=== PATIENT | male | born 1970 | race Caucasian/White ===

== ENCOUNTER 2018-01-04 09:58 | Inpatient (IN) | payer OTHER ==
[~2018-01-04 09:58] MED LIST: LACTATED RINGER'S 1,000 ML IV*
[2018-01-04] MEDS: VANCOMYCIN 1 GM 250 ML IVPB (10:44)
[2018-01-04] MEDS ORDERED: CEFAZOLIN 1 GM INJ ×2 (11:43→17:09)
[2018-01-04] MEDS: D5W-0.45 NACL + KCL 20 MEQ 1,000 ML IV ×2 (12:22→21:19)
[2018-01-04] MEDS ORDERED: BISACODYL 10 MG SUPP PR (12:30)
[2018-01-04] MEDS ORDERED: MIDAZOLAM 1 MG/ML 2 ML INJ (12:30)
[2018-01-04] MEDS ORDERED: CEPASTAT LOZENGE MT (12:30)
[2018-01-04] MEDS ORDERED: DIPHENHYDRAMINE 50 MG INJ IV (12:30)
[2018-01-04] MEDS ORDERED: NALOXONE (0.4 MG/ML) INJ IV (12:30)
[2018-01-04] MEDS ORDERED: ONDANSETRON 4 MG INJ IV (12:30)
[2018-01-04] MEDS ORDERED: HYDROCODONE/APAP (10/325) TAB PO (12:30)
[2018-01-04] MEDS ORDERED: PHENYLephrine (100 MCG/ML) 5ML SYG (12:43)
[2018-01-04] MEDS: HEPARIN 1000 UNITS/ML 10 ML INJ (13:11)
[2018-01-04] MEDS: LIDOCAINE 1%/EPI 30 ML INJ (13:11)
[2018-01-04] MEDS: GELATIN SIZE 100 SPONGE (13:13)
[2018-01-04] MEDS: THROMBIN 5000 UNIT VIAL (13:15)
[2018-01-04] MEDS: SURGIFOAM POWDER 1 GM KIT (13:19)
[2018-01-04] MEDS ORDERED: morphine 10 MG INJ (16:53)
[2018-01-04] MEDS ORDERED: LIDOCAINE 2% (SDV) 5 ML INJ (17:04)
[2018-01-04] MEDS ORDERED: PROPOFOL 20 ML (17:04)
[2018-01-04] MEDS ORDERED: ROCURONIUM 50 MG INJ (17:04)
[2018-01-04] MEDS ORDERED: ONDANSETRON 4 MG INJ (17:05)
[2018-01-04] MEDS ORDERED: GLYCOPYRROLATE 0.4 MG INJ (17:05)
[2018-01-04] MEDS ORDERED: NEOSTIGMINE 3 MG/3 ML SYRINGE (17:05)
[2018-01-04] MEDS: HYDROmorphONE 0.2 MG/ML PCA IV ×2 (17:26→23:30)
[2018-01-04] MEDS ORDERED: HYDROmorphONE (0.2 MG/ML) 10ML SYG IV (17:30)
[2018-01-04] MEDS ORDERED: FENTAnyl 50 MCG/ML VIAL IV (17:30)
[2018-01-04] MEDS ORDERED: METOCLOPRAMIDE 10 MG INJ IV (17:30)
[2018-01-04] MEDS ORDERED: MEPERIDINE 25 MG INJ IV (17:30)
[2018-01-04] MEDS: HYDROmorphONE (0.2 MG/ML) 10ML SYG IV (18:14)
[2018-01-04] MEDS: ONDANSETRON 4 MG INJ IV (18:14)
[2018-01-04] MEDS: DIPHENHYDRAMINE 50 MG INJ IV (18:39)
[2018-01-04 19:12] LABS: ADD UMIC NO; UR ASCORBIC ACID NEGATIVE (NEGATIVE); UR BILIRUBIN (Dip) NEGATIVE (NEGATIVE); UR BLOOD (Dip) NEGATIVE (NEGATIVE); UR CLARITY SLIGHTLY CLOUDY (CLEAR); UR COLOR YELLOW (YELLOW); UR GLUCOSE (Dip) NEGATIVE (NEGATIVE); UR KETONES (Dip) NEGATIVE (NEGATIVE); UR LEUKOCYTE ESTERASE (Dip) NEGATIVE Leu/ul (NEGATIVE); UR MUCUS FEW /HPF (NONE SEEN); UR NITRITE (Dip) NEGATIVE (NEGATIVE); UR RBC 6 /HPF (0-5); UR SPECIFIC GRAVITY (Dip) 1.016 (1.003-1.030); UR TOTAL PROTEIN (Dip) NEGATIVE (NEGATIVE); UR UROBILINOGEN (Dip) NEGATIVE (NEGATIVE); UR WBC 1 /HPF (0-5)
[2018-01-04] MEDS: DOCUSATE SODIUM 100 MG CAP PO (21:00)
[2018-01-04] MEDS: VANCOMYCIN 1 GM (PMX) 250 ML IVPB (21:19)
[2018-01-05 05:13] LABS: ADD MAN DIFF? NO
[2018-01-05 05:21] LABS: WHITE BLOOD COUNT 8.8 10^3/ul (4.8-10.8)
[2018-01-05 05:21] LABS: BASOPHILS % 0.2 % (0.0-2.0); EOSINOPHILS % 0.1 % (0.0-7.0); HEMATOCRIT 38.3 % (42.0-52.0); HEMOGLOBIN 12.7 g/dl (14.0-18.0); LYMPHOCYTES # 1.3 10^3/ul (0.8-2.9); LYMPHOCYTES % 15.2 % (15.0-51.0); MEAN CORPUSCULAR HEMOGLOBIN 27.1 pg (29.0-33.0); MEAN CORPUSCULAR HGB CONC 33.2 g/dl (32.0-37.0); MEAN CORPUSCULAR VOLUME 81.7 fl (82.0-101.0); MEAN PLATELET VOLUME 11.9 fl (7.4-10.4); MONOCYTES % 11.8 % (0.0-11.0); NEUTROPHIL # 6.3 10^3/ul (1.6-7.5); NEUTROPHILS % 72.2 % (39.0-77.0); PLATELET COUNT 222 10^3/UL (140-415); RED BLOOD COUNT 4.69 10^6/ul (4.70-6.10); RED CELL DISTRIBUTION WIDTH 14.2 % (11.5-14.5)
[2018-01-05 05:49] LABS: ANION GAP 12 (8-16); BLOOD UREA NITROGEN 13 mg/dl (7-20); CALCIUM 7.8 mg/dl (8.4-10.2); CARBON DIOXIDE 28 mmol/L (21-31); CHLORIDE 105 mmol/L (97-110); CREATININE 1.17 mg/dl (0.61-1.24); GLUCOSE 123 mg/dl (70-220); MAGNESIUM 1.8 mg/dl (1.7-2.5); POTASSIUM 4.2 mmol/L (3.5-5.1); SODIUM 141 mmol/L (135-144)
[2018-01-05] MEDS: HYDROmorphONE 0.2 MG/ML PCA IV ×3 (07:52→21:38)
[2018-01-05] MEDS: RANITIDINE 150 MG TAB PO ×2 (08:11→20:44)
[2018-01-05] MEDS: DOCUSATE SODIUM 100 MG CAP PO ×2 (08:11→20:44)
[2018-01-05] MEDS: D5W-0.45 NACL + KCL 20 MEQ 1,000 ML IV ×3 (10:23→23:06)
[2018-01-05] MEDS: VANCOMYCIN 1 GM (PMX) 250 ML IVPB (10:23)
[2018-01-05] MEDS: CYCLOBENZAPRINE 10 MG TAB PO ×2 (14:45→23:01)
[2018-01-05] MEDS: HYDROmorphONE 0.5 MG/0.5 ML SYG IV (19:23)
[2018-01-06] MEDS: ACETAMINOPHEN 325 MG TAB PO ×2 (02:13→08:30)
[2018-01-06] MEDS: HYDROmorphONE 0.2 MG/ML PCA IV (04:00)
[2018-01-06 05:43] LABS: ADD MAN DIFF? NO
[2018-01-06 05:49] LABS: BASOPHILS % 0.3 % (0.0-2.0); EOSINOPHILS % 0.4 % (0.0-7.0); HEMATOCRIT 34.7 % (42.0-52.0); HEMOGLOBIN 11.7 g/dl (14.0-18.0); LYMPHOCYTES # 1.8 10^3/ul (0.8-2.9); LYMPHOCYTES % 18.4 % (15.0-51.0); MEAN CORPUSCULAR HEMOGLOBIN 27.7 pg (29.0-33.0); MEAN CORPUSCULAR HGB CONC 33.7 g/dl (32.0-37.0); MEAN CORPUSCULAR VOLUME 82.2 fl (82.0-101.0); MEAN PLATELET VOLUME 11.9 fl (7.4-10.4); MONOCYTE # 1.4 10^3/ul (0.3-0.9); MONOCYTES % 13.7 % (0.0-11.0); NEUTROPHIL # 6.7 10^3/ul (1.6-7.5); NEUTROPHILS % 66.7 % (39.0-77.0); PLATELET COUNT 176 10^3/UL (140-415); RED BLOOD COUNT 4.22 10^6/ul (4.70-6.10)
[2018-01-06 06:33] LABS: ANION GAP 12 (8-16); BLOOD UREA NITROGEN 8 mg/dl (7-20); CALCIUM 8.2 mg/dl (8.4-10.2); CARBON DIOXIDE 31 mmol/L (21-31); CHLORIDE 97 mmol/L (97-110); GLUCOSE 112 mg/dl (70-220); MAGNESIUM 1.8 mg/dl (1.7-2.5); POTASSIUM 3.9 mmol/L (3.5-5.1); SODIUM 136 mmol/L (135-144)
[2018-01-06] MEDS: DOCUSATE SODIUM 100 MG CAP PO ×2 (08:29→20:54)
[2018-01-06] MEDS: RANITIDINE 150 MG TAB PO ×2 (08:30→20:54)
[2018-01-06] MEDS: HYDROCODONE/APAP (10/325) TAB PO (09:47)
[2018-01-06] MEDS: D5W-0.45 NACL + KCL 20 MEQ 1,000 ML IV (13:44)
[2018-01-06] MEDS: CYCLOBENZAPRINE 10 MG TAB PO (14:31)
[2018-01-06] MEDS ORDERED: traMADol 50 MG TAB PO (17:30)
[2018-01-06] MEDS: traMADol 50 MG TAB PO (17:50)
[2018-01-06] MEDS: CARISOPRODOL 350 MG TAB PO (20:54)
[2018-01-07] MEDS: D5W-0.45 NACL + KCL 20 MEQ 1,000 ML IV ×3 (00:22→20:22)
[2018-01-07] MEDS: traMADol 50 MG TAB PO ×4 (01:48→20:35)
[2018-01-07 05:36] LABS: ADD MAN DIFF? NO
[2018-01-07 05:46] LABS: WHITE BLOOD COUNT 8.9 10^3/ul (4.8-10.8)
[2018-01-07 05:46] LABS: BASOPHILS % 0.2 % (0.0-2.0); EOSINOPHILS # 0.1 10^3/ul (0.0-0.5); EOSINOPHILS % 1.1 % (0.0-7.0); HEMOGLOBIN 11.5 g/dl (14.0-18.0); LYMPHOCYTES # 1.3 10^3/ul (0.8-2.9); MEAN CORPUSCULAR HEMOGLOBIN 27.3 pg (29.0-33.0); MEAN CORPUSCULAR HGB CONC 33.8 g/dl (32.0-37.0); MEAN CORPUSCULAR VOLUME 80.8 fl (82.0-101.0); MEAN PLATELET VOLUME 11.9 fl (7.4-10.4); MONOCYTE # 0.9 10^3/ul (0.3-0.9); MONOCYTES % 9.7 % (0.0-11.0); NEUTROPHIL # 6.5 10^3/ul (1.6-7.5); NEUTROPHILS % 73.8 % (39.0-77.0); PLATELET COUNT 172 10^3/UL (140-415); RED BLOOD COUNT 4.21 10^6/ul (4.70-6.10); RED CELL DISTRIBUTION WIDTH 13.7 % (11.5-14.5)
[2018-01-07] MEDS: CARISOPRODOL 350 MG TAB PO ×2 (06:26→16:40)
[2018-01-07 07:01] LABS: ANION GAP 14 (8-16); BLOOD UREA NITROGEN 8 mg/dl (7-20); CALCIUM 8.5 mg/dl (8.4-10.2); CARBON DIOXIDE 32 mmol/L (21-31); CHLORIDE 100 mmol/L (97-110); CREATININE 0.93 mg/dl (0.61-1.24); GLUCOSE 101 mg/dl (70-220); MAGNESIUM 1.9 mg/dl (1.7-2.5); POTASSIUM 3.6 mmol/L (3.5-5.1); SODIUM 142 mmol/L (135-144)
[2018-01-07] MEDS: DOCUSATE SODIUM 100 MG CAP PO ×2 (08:23→20:34)
[2018-01-07] MEDS: RANITIDINE 150 MG TAB PO ×2 (08:23→20:34)
[2018-01-07] MEDS: ZOLPIDEM 5 MG TAB PO (20:34)
[2018-01-08] MEDS: traMADol 50 MG TAB PO ×2 (06:11→12:01)
[2018-01-08] MEDS: D5W-0.45 NACL + KCL 20 MEQ 1,000 ML IV (06:22)
[2018-01-08] MEDS: RANITIDINE 150 MG TAB PO (09:12)
[2018-01-08] MEDS: DOCUSATE SODIUM 100 MG CAP PO (09:12)
[2018-01-08] MEDS: CARISOPRODOL 350 MG TAB PO (09:12)
[2018-01-08] MEDS: AL HYDROX/MG HYDROX/SIMETH 30 ML CUP PO (09:13)
== END 2018-01-08 15:35 | disposition home or self-care (01) | DRG 455 ==
LOC: REC 09:58 → MS1 19:30
PROC: 0SG30A0 Fusion of Lumbosacral Joint with Interbody Fusion Device, Anterior Approach, Anterior Column, Open Approach (ICD-10-PCS; principal; 2018-01-04 12:00)
PROC: 0SG3071 Fusion of Lumbosacral Joint with Autologous Tissue Substitute, Posterior Approach, Posterior Column, Open Approach (ICD-10-PCS; 2018-01-04 12:00)
PROC: 0QB30ZZ Excision of Left Pelvic Bone, Open Approach (ICD-10-PCS; 2018-01-04 12:00)
PROC: 0ST40ZZ Resection of Lumbosacral Disc, Open Approach (ICD-10-PCS; 2018-01-04 12:00)
DX: M43.17 Spondylolisthesis, lumbosacral region (principal); E78.5 Hyperlipidemia, unspecified; M48.07 Spinal stenosis, lumbosacral region; K21.9 Gastro-esophageal reflux disease without esophagitis; M53.2X7 Spinal instabilities, lumbosacral region; K58.9 Irritable bowel syndrome, unspecified; M54.17 Radiculopathy, lumbosacral region
CPT/HCPCS: 72114; 80048; 81001; 81003; 83735; 85025; 86850; 86900; 86901; 86999; 87086; 97116; 97161; 97530

== ENCOUNTER → 2018-01-20 | Outpatient (CLI) | payer OTHER | END | disposition home or self-care (01) | LOC: VAS 12:36 | DX: M79.662 Pain in left lower leg (principal); M79.661 Pain in right lower leg | CPT/HCPCS: 93970 ==

== ENCOUNTER 2019-02-15 05:23 | Inpatient (IN) | payer OTHER ==
[2019-02-15] MEDS: VANCOMYCIN 1 GM 250 ML IVPB ×2 (06:35)
[2019-02-15] MEDS: LACTATED RINGER'S 1,000 ML IV* (06:40)
[2019-02-15] MEDS: D5W-0.45 NACL + KCL 20 MEQ 1,000 ML IV ×3 (06:56→17:02)
[2019-02-15] MEDS ORDERED: ONDANSETRON 4 MG INJ IV (07:00)
[2019-02-15] MEDS ORDERED: HYDROCODONE/APAP (10/325) TAB PO ×2 (07:00)
[2019-02-15] MEDS ORDERED: DIPHENHYDRAMINE 50 MG INJ IV ×2 (07:00→10:30)
[2019-02-15] MEDS ORDERED: DIPHENHYDRAMINE 25 MG CAP PO (07:00)
[2019-02-15] MEDS ORDERED: CEPASTAT LOZENGE MT (07:00)
[2019-02-15] MEDS ORDERED: NALOXONE (0.4 MG/ML) INJ IV (07:00)
[2019-02-15] MEDS ORDERED: LIDOCAINE 2% (SDV) 5 ML INJ (07:05)
[2019-02-15] MEDS ORDERED: PROPOFOL 20 ML ×2 (07:05→07:20)
[2019-02-15] MEDS ORDERED: MIDAZOLAM 1 MG/ML 2 ML INJ (07:06)
[2019-02-15] MEDS ORDERED: SUCCINYLCHOLINE CHLORIDE 100 MG/5 ML SYG IV (07:20)
[2019-02-15] MEDS ORDERED: ONDANSETRON 4 MG INJ (07:22)
[2019-02-15] MEDS ORDERED: DEXAMETHASONE 4 MG/ML 5 ML INJ (07:22)
[2019-02-15] MEDS ORDERED: FAMOTIDINE 20 MG INJ (07:22)
[2019-02-15] MEDS: BUPIVACAINE 0.5%/EPI (SDV) 30 ML INJ (07:55)
[2019-02-15] MEDS ORDERED: EPHEDrine 25 MG/5 ML SYG (07:57)
[2019-02-15] MEDS ORDERED: ROCURONIUM 50 MG INJ ×3 (08:02→10:17)
[2019-02-15] MEDS: THROMBIN (BOVINE) 5,000 UNIT VIAL TP (08:33)
[2019-02-15] MEDS: POLYMYXIN/BACITRACIN 1L IRRIG (08:33)
[2019-02-15] MEDS: SURGIFOAM POWDER 1 GM KIT TOP (08:34)
[2019-02-15] MEDS ORDERED: HYDROmorphONE 2 MG/ML SYG (10:09)
[2019-02-15] MEDS ORDERED: THROMBIN (BOVINE) 5,000 UNIT VIAL TP (10:22)
[2019-02-15] MEDS: SURGIFOAM POWDER 1 GM KIT (10:27)
[2019-02-15] MEDS ORDERED: FENTAnyl 50 MCG/ML VIAL IV ×3 (10:30)
[2019-02-15] MEDS ORDERED: hydrALAzine 20 MG INJ IV (10:30)
[2019-02-15] MEDS ORDERED: LABETALOL HCL 20MG INJ IV (10:30)
[2019-02-15] MEDS ORDERED: PROCHLORPERAZINE 10 MG INJ IV (10:30)
[2019-02-15] MEDS ORDERED: EPHEDrine SULFATE 50 MG/5 ML SYG IV (10:30)
[2019-02-15] MEDS ORDERED: MEPERIDINE 25 MG INJ IV (10:30)
[2019-02-15] MEDS ORDERED: HYDROmorphONE 1 MG/5 ML IV SYRINGE IV ×2 (10:30)
[2019-02-15] MEDS ORDERED: BUPIVACAINE 0.25% (MPF) 30 ML INJ (11:24)
[2019-02-15] MEDS ORDERED: FENTAnyl 50 MCG/ML VIAL (11:24)
[2019-02-15] MEDS ORDERED: NEOSTIGMINE 3 MG/3 ML SYRINGE ×2 (11:46→11:50)
[2019-02-15] MEDS ORDERED: GLYCOPYRROLATE 0.4 MG INJ ×2 (11:46→11:50)
[2019-02-15] MEDS ORDERED: SUGAMMADEX SODIUM 200 MG/2 ML VIAL IV ×2 (11:53→11:56)
[2019-02-15] MEDS: DOCUSATE SODIUM 100 MG CAP PO ×2 (12:38→21:15)
[2019-02-15] MEDS: HYDROmorphONE 1 MG/5 ML IV SYRINGE IV (12:38)
[2019-02-15] MEDS: ONDANSETRON 4 MG INJ IV (12:38)
[2019-02-15] MEDS: HYDROmorphONE 0.2 MG/ML PCA IV (12:45)
[2019-02-15] MEDS: PREGABALIN 75 MG CAP PO ×2 (13:00→21:00)
[2019-02-15] MEDS: VANCOMYCIN 1 GM (PMX) 250 ML IVPB (17:18)
[2019-02-15] MEDS: HYDROmorphONE 0.5 MG/0.5 ML SYG IV (22:00)
[2019-02-16] MEDS: D5W-0.45 NACL + KCL 20 MEQ 1,000 ML IV ×4 (02:56→22:56)
[2019-02-16] MEDS: HYDROmorphONE 0.2 MG/ML PCA IV ×2 (05:32→18:08)
[2019-02-16] MEDS: VANCOMYCIN 1 GM (PMX) 250 ML IVPB (05:46)
[2019-02-16 07:26] LABS: ADD MAN DIFF? NO
[2019-02-16 07:28] LABS: BASOPHILS % 0.1 % (0.0-2.0); HEMATOCRIT 36.9 % (42.0-52.0); HEMOGLOBIN 12.1 g/dl (14.0-18.0); LYMPHOCYTES # 1.4 10^3/ul (0.8-2.9); LYMPHOCYTES % 17.2 % (15.0-51.0); MEAN CORPUSCULAR HEMOGLOBIN 27.1 pg (29.0-33.0); MEAN CORPUSCULAR HGB CONC 32.8 g/dl (32.0-37.0); MEAN CORPUSCULAR VOLUME 82.6 fl (82.0-101.0); MEAN PLATELET VOLUME 11.8 fl (7.4-10.4); MONOCYTE # 1.1 10^3/ul (0.3-0.9); MONOCYTES % 13.5 % (0.0-11.0); NEUTROPHIL # 5.8 10^3/ul (1.6-7.5); NEUTROPHILS % 68.7 % (39.0-77.0); PLATELET COUNT 201 10^3/UL (140-415); RED BLOOD COUNT 4.47 10^6/ul (4.70-6.10); RED CELL DISTRIBUTION WIDTH 14.6 % (11.5-14.5)
[2019-02-16 07:28] LABS: WHITE BLOOD COUNT 8.4 10^3/ul (4.8-10.8)
[2019-02-16 08:00] LABS: ANION GAP 6 (5-13); BLOOD UREA NITROGEN 11 mg/dl (7-20); CALCIUM 8.3 mg/dl (8.4-10.2); CARBON DIOXIDE 30 mmol/L (21-31); CHLORIDE 102 mmol/L (97-110); CREATININE 1.02 mg/dl (0.61-1.24); Estimated GFR > 60 mL/min (>60); GLUCOSE 104 mg/dl (70-220); POTASSIUM 3.9 mmol/L (3.5-5.1); SODIUM 138 mmol/L (135-144)
[2019-02-16 08:17] LABS: MAGNESIUM 1.8 mg/dl (1.7-2.5)
[2019-02-16] MEDS: DOCUSATE SODIUM 100 MG CAP PO ×2 (08:57→21:05)
[2019-02-16] MEDS: CYCLOBENZAPRINE 10 MG TAB PO ×2 (11:29→22:37)
[2019-02-16] MEDS: PREGABALIN 75 MG CAP PO ×3 (11:30→21:05)
[2019-02-16] MEDS: HYDROmorphONE 0.5 MG/0.5 ML SYG IV (14:54)
[2019-02-16] MEDS: ACETAMINOPHEN 325 MG TAB PO (15:37)
[2019-02-16 17:37] LABS: ADD UMIC YES; UR ASCORBIC ACID NEGATIVE (NEGATIVE); UR BILIRUBIN (Dip) NEGATIVE (NEGATIVE); UR BLOOD (Dip) 1+ mg/dL (NEGATIVE); UR CLARITY CLEAR (CLEAR); UR COLOR COLORLESS (YELLOW); UR GLUCOSE (Dip) NEGATIVE (NEGATIVE); UR KETONES (Dip) NEGATIVE (NEGATIVE); UR LEUKOCYTE ESTERASE (Dip) NEGATIVE Leu/ul (NEGATIVE); UR NITRITE (Dip) NEGATIVE (NEGATIVE); UR RBC 0 /HPF (0-5); UR SPECIFIC GRAVITY (Dip) 1.003 (1.003-1.030); UR TOTAL PROTEIN (Dip) NEGATIVE (NEGATIVE); UR UROBILINOGEN (Dip) NEGATIVE (NEGATIVE); UR WBC 1 /HPF (0-5)
[2019-02-16 18:01] LABS: ADD MAN DIFF? NO
[2019-02-16 18:07] LABS: WHITE BLOOD COUNT 8.7 10^3/ul (4.8-10.8)
[2019-02-16 18:07] LABS: BASOPHILS % 0.3 % (0.0-2.0); EOSINOPHILS % 0.2 % (0.0-7.0); HEMATOCRIT 36.8 % (42.0-52.0); LYMPHOCYTES # 1.4 10^3/ul (0.8-2.9); MEAN CORPUSCULAR HEMOGLOBIN 27.5 pg (29.0-33.0); MEAN CORPUSCULAR HGB CONC 32.6 g/dl (32.0-37.0); MEAN CORPUSCULAR VOLUME 84.2 fl (82.0-101.0); MEAN PLATELET VOLUME 11.6 fl (7.4-10.4); MONOCYTE # 1.2 10^3/ul (0.3-0.9); MONOCYTES % 13.7 % (0.0-11.0); NEUTROPHILS % 69.3 % (39.0-77.0); PLATELET COUNT 189 10^3/UL (140-415); RED BLOOD COUNT 4.37 10^6/ul (4.70-6.10); RED CELL DISTRIBUTION WIDTH 14.6 % (11.5-14.5)
[2019-02-17 06:41] LABS: ADD MAN DIFF? NO
[2019-02-17 06:47] LABS: BASOPHILS % 0.3 % (0.0-2.0); EOSINOPHILS # 0.1 10^3/ul (0.0-0.5); EOSINOPHILS % 0.9 % (0.0-7.0); LYMPHOCYTES # 1.6 10^3/ul (0.8-2.9); LYMPHOCYTES % 18.8 % (15.0-51.0); MEAN CORPUSCULAR HGB CONC 32.4 g/dl (32.0-37.0); MEAN CORPUSCULAR VOLUME 83.1 fl (82.0-101.0); MEAN PLATELET VOLUME 11.4 fl (7.4-10.4); MONOCYTE # 1.2 10^3/ul (0.3-0.9); MONOCYTES % 14.1 % (0.0-11.0); NEUTROPHIL # 5.6 10^3/ul (1.6-7.5); NEUTROPHILS % 65.4 % (39.0-77.0); PLATELET COUNT 196 10^3/UL (140-415); RED BLOOD COUNT 4.45 10^6/ul (4.70-6.10); RED CELL DISTRIBUTION WIDTH 14.4 % (11.5-14.5)
[2019-02-17 06:47] LABS: WHITE BLOOD COUNT 8.6 10^3/ul (4.8-10.8)
[2019-02-17] MEDS: D5W-0.45 NACL + KCL 20 MEQ 1,000 ML IV (06:49)
[2019-02-17 07:04] LABS: ANION GAP 5 (5-13); BLOOD UREA NITROGEN 10 mg/dl (7-20); CALCIUM 8.7 mg/dl (8.4-10.2); CARBON DIOXIDE 32 mmol/L (21-31); CHLORIDE 102 mmol/L (97-110); CREATININE 0.96 mg/dl (0.61-1.24); Estimated GFR > 60 mL/min (>60); GLUCOSE 118 mg/dl (70-220); MAGNESIUM 2.1 mg/dl (1.7-2.5); POTASSIUM 4.3 mmol/L (3.5-5.1); SODIUM 139 mmol/L (135-144)
[2019-02-17] MEDS: PREGABALIN 75 MG CAP PO ×3 (09:28→20:04)
[2019-02-17] MEDS: DOCUSATE SODIUM 100 MG CAP PO ×2 (09:28→20:04)
[2019-02-17] MEDS: HYDROCODONE/APAP (10/325) TAB PO ×4 (09:30→23:27)
[2019-02-17] MEDS: BISACODYL 10 MG SUPP PR (18:24)
[2019-02-18] MEDS: HYDROCODONE/APAP (10/325) TAB PO ×3 (04:40→20:35)
[2019-02-18] MEDS: BISACODYL 10 MG SUPP PR (05:47)
[2019-02-18 07:02] LABS: ADD MAN DIFF? NO
[2019-02-18 07:09] LABS: WHITE BLOOD COUNT 6.7 10^3/ul (4.8-10.8)
[2019-02-18 07:09] LABS: BASOPHILS % 0.3 % (0.0-2.0); EOSINOPHILS # 0.2 10^3/ul (0.0-0.5); EOSINOPHILS % 2.4 % (0.0-7.0); HEMATOCRIT 36.7 % (42.0-52.0); HEMOGLOBIN 11.9 g/dl (14.0-18.0); LYMPHOCYTES # 1.7 10^3/ul (0.8-2.9); LYMPHOCYTES % 25.7 % (15.0-51.0); MEAN CORPUSCULAR HEMOGLOBIN 26.9 pg (29.0-33.0); MEAN CORPUSCULAR HGB CONC 32.4 g/dl (32.0-37.0); MEAN CORPUSCULAR VOLUME 82.8 fl (82.0-101.0); MONOCYTE # 0.8 10^3/ul (0.3-0.9); MONOCYTES % 11.4 % (0.0-11.0); NEUTROPHILS % 59.8 % (39.0-77.0); PLATELET COUNT 205 10^3/UL (140-415); RED BLOOD COUNT 4.43 10^6/ul (4.70-6.10); RED CELL DISTRIBUTION WIDTH 14.2 % (11.5-14.5)
[2019-02-18 07:29] LABS: ANION GAP 6 (5-13); BLOOD UREA NITROGEN 12 mg/dl (7-20); CALCIUM 8.7 mg/dl (8.4-10.2); CARBON DIOXIDE 33 mmol/L (21-31); CHLORIDE 99 mmol/L (97-110); CREATININE 1.01 mg/dl (0.61-1.24); Estimated GFR > 60 mL/min (>60); GLUCOSE 102 mg/dl (70-220); MAGNESIUM 1.9 mg/dl (1.7-2.5); SODIUM 138 mmol/L (135-144)
[2019-02-18] MEDS: PREGABALIN 75 MG CAP PO ×2 (09:18→12:34)
[2019-02-18] MEDS: DOCUSATE SODIUM 100 MG CAP PO ×2 (09:18→20:34)
[2019-02-18] MEDS: KETOROLAC 30 MG INJ IV (12:35)
[2019-02-18] MEDS: PREGABALIN 50 MG CAP PO (20:35)
[2019-02-19] MEDS: HYDROCODONE/APAP (10/325) TAB PO ×3 (00:26→14:42)
[2019-02-19] MEDS: PREGABALIN 50 MG CAP PO ×2 (08:19→14:43)
[2019-02-19] MEDS: CYCLOBENZAPRINE 10 MG TAB PO (08:19)
[2019-02-19] MEDS: DOCUSATE SODIUM 100 MG CAP PO (08:19)
== END 2019-02-19 16:10 | disposition home or self-care (01) | DRG 460 ==
LOC: REC 05:23 → MS1 13:46 → REC 14:00 → TEL 16:47
PROC: 0SG3071 Fusion of Lumbosacral Joint with Autologous Tissue Substitute, Posterior Approach, Posterior Column, Open Approach (ICD-10-PCS; principal; 2019-02-15 07:00)
PROC: 01NB0ZZ Release Lumbar Nerve, Open Approach (ICD-10-PCS; 2019-02-15 07:00)
PROC: 01NR0ZZ Release Sacral Nerve, Open Approach (ICD-10-PCS; 2019-02-15 07:00)
PROC: 0QP104Z Removal of Internal Fixation Device from Sacrum, Open Approach (ICD-10-PCS; 2019-02-15 07:00)
PROC: 0QP004Z Removal of Internal Fixation Device from Lumbar Vertebra, Open Approach (ICD-10-PCS; 2019-02-15 07:00)
PROC: 4A11X4G Monitoring of Peripheral Nervous Electrical Activity, Intraoperative, External Approach (ICD-10-PCS; 2019-02-15 07:00)
DX: M96.0 Pseudarthrosis after fusion or arthrodesis (principal); T84.418A Breakdown (mechanical) of other internal orthopedic devices, implants and grafts, initial encounter; Y83.8 Other surgical procedures as the cause of abnormal reaction of the patient, or of later complication, without mention of misadventure at the time of the procedure; M51.16 Intervertebral disc disorders with radiculopathy, lumbar region; M48.061 Spinal stenosis, lumbar region without neurogenic claudication; M48.08 Spinal stenosis, sacral and sacrococcygeal region; M17.11 Unilateral primary osteoarthritis, right knee; K21.9 Gastro-esophageal reflux disease without esophagitis; E78.5 Hyperlipidemia, unspecified; E66.9 Obesity, unspecified; Z68.36 Body mass index [BMI] 36.0-36.9, adult; Z98.1 Arthrodesis status; Z88.0 Allergy status to penicillin
CPT/HCPCS: 72110; 72131; 80048; 81001; 83735; 85025; 86999; 87040-91; 87086; 88300; 97116; 97162; 97530